=== PATIENT | female | born 1980 | race Caucasian/White ===

== ENCOUNTER 2022-07-07 18:34 | Emergency (ER) | payer OTHER ==
[2022-07-07] MEDS ORDERED: Sodium Chloride 0.9% 10 ML Syringe FLUSH PRN (18:46)
[2022-07-07 18:54] LABS: BASOPHILS PERCENT AUTO 0.2 % (0.0-1.0); EOSINOPHILS PERCENT AUTO 0.9 % (1.0-3.0); HEMATOCRIT 40.9 % (37.0-47.0); HEMOGLOBIN 13.8 g/dL (12.0-16.0); LYMPHOCYTES PERCENT AUTO 42.5 % (20.5-50.1); MEAN CORPUSCULAR HEMOGLOBIN 30.4 pg (27.0-34.0); MEAN CORPUSCULAR HGB CONC 33.7 g/dL (33.0-35.0); MEAN CORPUSCULAR VOLUME 90.1 fL (80-100); MONOCYTES PERCENT AUTO 5.6 % (2-8); NEUTROPHILS PERCENT AUTO 50.8 % (42.2-75.2); PLATELET COUNT,PLT 373 10^3/uL (150-450); RED BLOOD CELL COUNT 4.54 10^6/uL (4.2-5.4); WHITE BLOOD CELL COUNT,WBC 9.1 10^3/uL (5.0-10.0)
[2022-07-07] MEDS ORDERED: HYDROmorphone 0.5 MG/0.5 ML Syringe IVPUSH ONE (19:01)
[2022-07-07] MEDS ORDERED: Ondansetron 4 MG/2 ML SDV IVPUSH ONE (19:01)
[2022-07-07 19:11] LABS: INR 0.9 (0.9-1.2); PROTHROMBIN TIME 9.5 SEC (9.0-12.0)
[2022-07-07 19:13] LABS: APPEARANCE,URINE CLEAR (CLEAR); BILIRUBIN,URINE NEGATIVE (NEGATIVE); COLOR,URINE YELLOW (YELLOW); GLUCOSE,URINE 500 (NEGATIVE); KETONES,URINE 15 (NEGATIVE); LEUKOCYTE ESTERASE,URINE NEGATIVE (NEGATIVE); NITRITE,URINE NEGATIVE (NEGATIVE); OCCULT BLOOD,URINE NEGATIVE (NEGATIVE); PROTEIN,URINE NEGATIVE (NEGATIVE); UROBILINOGEN,URINE 0.2 mg/dL (0.2-1.0)
[2022-07-07 19:16] LABS: ALBUMIN 3.9 g/dL (3.4-5.0); BILIRUBIN TOTAL 0.5 mg/dL (0.2-1.0); BUN/CREATININE RATIO 14.3 (No establ ref range); CALCIUM 9.2 mg/dL (8.5-10.1); CREATININE 0.91 mg/dL (0.55-1.02); EST CRCL DRUG DOSING (CG) 70.96 mL/min; MAGNESIUM 1.6 mg/dL (1.8-2.4); PROTEIN TOTAL,TP 7.8 g/dL (6.4-8.2)
[2022-07-07] MEDS ORDERED: LORazepam 2 MG/ML SDV IVPUSH ONE (19:21)
[2022-07-07] MEDS ORDERED: Sodium Chloride 0.9% 1,000 ML IV ONE (19:30)
[2022-07-07] MEDS ORDERED: Potassium Chloride 10 MEQ Tab.ER PO ONE (19:31)
[2022-07-07] MEDS ORDERED: Ketorolac 30 MG/ML SDV IVPUSH ONE (19:57)
[2022-07-07] MEDS ORDERED: Magnesium Sulfate/Water 2 GM in Premix Bag 1 BAG IV ONE (20:06)
== END 2022-07-07 20:59 | disposition home or self-care (01) ==
LOC: DL.ED 18:34
DX: G43.909 Migraine, unspecified, not intractable, without status migrainosus (principal); E10.9 Type 1 diabetes mellitus without complications; Z88.0 Allergy status to penicillin; Z88.8 Allergy status to other drugs, medicaments and biological substances; Z79.82 Long term (current) use of aspirin
CPT/HCPCS: 36415; 70450; 80053; 81003; 82947; 83735; 84703; 85025; 85610; 96361; 96365; 96375; 99284; A9270; J1170; J1885; J2405; J3475; J7030; J3490

== ENCOUNTER 2023-09-01 17:32 | Emergency (ER) | payer OTHER, BC ==
[2023-09-01 18:19] LABS: BASOPHILS PERCENT AUTO 0.4 % (0.0-1.0); EOSINOPHILS PERCENT AUTO 1.5 % (1.0-3.0); HEMATOCRIT 38.1 % (37.0-47.0); HEMOGLOBIN 12.1 g/dL (12.0-16.0); LYMPHOCYTES PERCENT AUTO 29.2 % (20.5-50.1); MEAN CORPUSCULAR HEMOGLOBIN 26.7 pg (27.0-34.0); MEAN CORPUSCULAR HGB CONC 31.8 g/dL (33.0-35.0); MEAN CORPUSCULAR VOLUME 83.9 fL (80-100); MONOCYTES PERCENT AUTO 6.8 % (2-8); NEUTROPHILS PERCENT AUTO 62.1 % (42.2-75.2); PLATELET COUNT,PLT 420 10^3/uL (150-450); RED BLOOD CELL COUNT 4.54 10^6/uL (4.2-5.4); WHITE BLOOD CELL COUNT,WBC 8.5 10^3/uL (5.0-10.0)
[2023-09-01] MEDS: Aspirin 81 MG Tab.Chew PO ONE (18:28)
[2023-09-01] MEDS: Sodium Chloride 0.9% 1,000 ML IV ONE (18:28)
[2023-09-01] MEDS: Sodium Chloride 0.9% 10 ML Syringe FLUSH PRN (18:29)
[2023-09-01] MEDS: HYDROmorphone 1 MG/ML Syringe IVPUSH ONE (18:30)
[2023-09-01] MEDS: Ondansetron 4 MG/2 ML SDV IV ONE (18:30)
[2023-09-01 18:34] LABS: AMYLASE 80 U/L (25-115); LIPASE 118 U/L (16-77)
[2023-09-01 18:37] LABS: INR 0.9 (0.9-1.2); PROTHROMBIN TIME 9.1 SEC (9.0-12.0); PTT,PARTIAL THROMBOPLSTIN TIME 27.9 SEC (22.0-34.0)
[2023-09-01 18:41] LABS: A/G RATIO 0.9; ALANINE AMINOTRANSFERASE,ALT 18 U/L (14-59); ALBUMIN 3.5 g/dL (3.4-5.0); ALKALINE PHOSPHATASE 109 U/L (46-116); ANION GAP 14.3 mEq/L (7-13); ASPARTATE AMNIOTRANSFERASE,AST 9 U/L (15-37); BILIRUBIN TOTAL 0.2 mg/dL (0.2-1.0); BLOOD UREA NITROGEN,BUN 11 mg/dL (7-18); BUN/CREATININE RATIO 12.4 (No establ ref range); CALCIUM 8.8 mg/dL (8.5-10.1); CARBON DIOXIDE,CO2 27 mmol/L (21-32); CHLORIDE,CL 99 mmol/L (98-107); CREATININE 0.89 mg/dL (0.55-1.02); EST CRCL DRUG DOSING (CG) 71.11 mL/min; GLUCOSE RANDOM 219 mg/dL (70-99); POTASSIUM,K 4.3 mmol/L (3.5-5.1); PROTEIN TOTAL,TP 7.6 g/dL (6.4-8.2); SODIUM,NA 136 mmol/L (136-145)
[2023-09-01 18:42] LABS: ESTIMATED GFR 83 mL/min (>=60)
[2023-09-01 18:44] LABS: HCG QUALITATIVE,SERUM NEGATIVE (NEGATIVE); LACTIC ACID 1.7 mmol/L (0.4-2.0)
[2023-09-01 18:45] LABS: B-TYPE NATRIURETIC PEPTIDE,BNP 9 pg/ml (0-100)
[2023-09-01] MEDS: Iopamidol 755 Mg/ML 100 ML Bottle IVPUSH ONE (19:22)
[2023-09-01] MEDS ORDERED: fentaNYL 100 MCG/2 ML SDV IVPUSH ONE (19:48)
[2023-09-01] MEDS: fentaNYL 100 MCG/2 ML SDV IVPUSH ONE (20:10)
[2023-09-01] MEDS ORDERED: Ketorolac 30 MG/ML SDV IVPUSH ONE (20:38)
[2023-09-01] MEDS: Ketorolac 30 MG/ML SDV IVPUSH ONE (21:03)
[2023-09-01] MEDS: Take Home: Acetaminophen/HYDROcodone 325-5 MG, 5 Tab Pack PO ONE (21:29)
== END 2023-09-01 21:35 | disposition home or self-care (01) ==
LOC: DL.ED 17:32
DX: K80.20 Calculus of gallbladder without cholecystitis without obstruction (principal); E78.00 Pure hypercholesterolemia, unspecified; E10.9 Type 1 diabetes mellitus without complications; Z88.0 Allergy status to penicillin; Z88.7 Allergy status to serum and vaccine; Z79.82 Long term (current) use of aspirin; Z79.4 Long term (current) use of insulin; Z79.899 Other long term (current) drug therapy
CPT/HCPCS: 36415; 71275; 74177; 80053; 82150; 83605; 83690; 83880; 84145; 84484; 84703; 85025; 85610; 85730; 93005; 93010; 96374; 96375; 99284; 99285; A9270; J1170; J1885; J2405; J3010; J7030; Q9967; J3490